=== PATIENT | male | born 1990 | race Caucasian/White ===

== ENCOUNTER 2017-06-13 23:03 | Emergency (ER) | payer OTHER ==
[2017-06-13 23:59] VITALS: BMI 30.8
[2017-06-14] MEDS ORDERED: ACETAMINOPHEN 1000 MG/100 ML VIAL (NON FORMULARY) IVPB ONE (04:53)
[2017-06-14] MEDS ORDERED: FAMOTIDINE 20 MG/50 ML IVPB 20 MG/50 ML MG IVPB ONE ×2 (04:53→05:54)
[2017-06-14] MEDS ORDERED: METOCLOPRAMIDE HCL INJECTION 10 MG/2 ML VIAL IVPUSH ONE (04:53)
[2017-06-14] MEDS ORDERED: SODIUM CHLORIDE 1,000 ML IV STA (04:53)
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
[2017-06-14] MEDS ORDERED: MAG HYDROX/AL HYDROX/SIMETH -MYLANTA- ORAL SUSPENSION PO ONE (04:55)
[2017-06-14] MEDS ORDERED: MAG HYDROX/AL HYDROX/SIMETH 30 ML UNIT-DOSE CUP ONE (05:01)
[2017-06-14] MEDS ORDERED: ACETAMINOPHEN INJECTION 100 ML IVPB ONE (05:01)
[2017-06-14] MEDS ORDERED: METOCLOPRAMIDE HCL INJECTION 10 MG/2 ML VIAL ONE (05:01)
[2017-06-14 05:21] LABS: BASO % 0.5 % (0-2.0); EOS % 0.6 % (0-4.5); HEMATOCRIT 49.5 % (35.4-49); MCH 30.7 pg (25.7-33.7); MCHC 34.3 g/dl (32.0-35.9); MEAN CELL VOLUME 89.3 fl (80-96); MONO % 1.7 % (3.8-10.2); NEUT % 82.2 % (42.8-82.8); PLATELET COUNT 474 K/MM3 (134-434); RBC 5.54 M/mm3 (4.00-5.60); RDW 13.1 % (11.9-15.9); WHITE BLOOD COUNT 16.9 K/mm3 (4.0-10.0)
[2017-06-14 05:23] LABS: URINE APPEARANCE CLEAR; URINE BILIRUBIN NEGATIVE (NEGATIVE); URINE BLOOD NEGATIVE (NEGATIVE); URINE COLOR YELLOW; URINE GLUCOSE (UA) NEGATIVE (NEGATIVE); URINE KETONE 1+ (NEGATIVE); URINE LEUK ESTERASE NEGATIVE (NEGATIVE); URINE NITRITE NEGATIVE (NEGATIVE); URINE UROBILINOGEN NEGATIVE mg/dL (0.2-1.0)
[2017-06-14 05:24] LABS: URINE PROTEIN 2+ (NEGATIVE)
[2017-06-14 05:38] LABS: URINE MUCUS FEW
[2017-06-14 05:47] LABS: ALBUMIN 3.7 g/dl (3.4-5.0); ANION GAP 5 (8-16); BILIRUBIN,TOTAL 0.3 mg/dL (0.2-1.0); BLOOD UREA NITROGEN 15 mg/dL (7-18); CALCIUM 9.3 mg/dL (8.5-10.1); CHLORIDE 103 mmol/L (98-107); CO2 29 mmol/L (21-32); CREATININE 0.9 mg/dL (0.7-1.3); GLUCOSE,RANDOM 123 mg/dL (74-106); POTASSIUM 4.7 mmol/L (3.5-5.1); SGOT/AST 15 U/L (15-37); SGPT/ALT 33 U/L (12-78); SODIUM 137 mmol/L (136-145)
[2017-06-14 05:48] LABS: ALK PHOS 66 U/L (45-117); LIPASE 284 U/L (73-393)
[2017-06-14] MEDS ORDERED: ONDANSETRON 4 MG/2 ML VIAL IVPUSH ONE (06:46)
[2017-06-14 06:48] VITALS: BP 146/85; PULSE 87; TEMP 98.1
--- NOTE | 2017-06-14 08:28 | PDOC ---
*Physical Exam - Vital Signs Last Vital Signs Temp Pulse Resp BP Pulse Ox 98.1 F 87 14 146/85 100 06/14/17 06:47 06/14/17 06:47 06/14/17 06:47 06/14/17 06:47 06/13/17 23:25 <Cyndi Hebert - Last Filed: 06/14/17 09:21> - Vital Signs Last Vital Signs Temp Pulse Resp BP Pulse Ox 98.1 F 87 14 146/85 100 06/14/17 06:47 06/14/17 06:47 06/14/17 06:47 06/14/17 06:47 06/13/17 23:25 <Marco Valadez - Last Filed: 06/14/17 10:29> ED Treatment Course - LABORATORY CBC & Chemistry Diagram: 06/14/17 05:10 06/14/17 04:57 - ADDITIONAL ORDERS Additional order review: Laboratory Results 06/14/17 06/14/17 05:10 04:57 Sodium 137 Potassium 4.7 Chloride 103 Carbon Dioxide 29 Anion Gap 5 L BUN 15 Creatinine 0.9 Creat Clearance w eGFR > 60 Random Glucose 123 H D Calcium 9.3 Total Bilirubin 0.3 D AST 15 ALT 33 Alkaline Phosphatase 66 Total Protein 8.0 Albumin 3.7 Lipase 284 Urine Color Yellow Urine Appearance Clear Urine pH 8.0 Ur Specific [place] 1.030 Urine Protein 2+ H Urine Glucose (UA) Negative Urine Ketones 1+ H Urine Blood Negative Urine Nitrite Negative Urine Bilirubin Negative Urine Urobilinogen Negative Ur Leukocyte Esterase Negative Urine WBC (Auto) <1 Urine RBC (Auto) 3 Urine Mucus Few 06/14/17 05:10 RBC 5.54 MCV 89.3 MCHC 34.3 RDW 13.1 MPV 8.0 D Neutrophils % 82.2 D Lymphocytes % 15.0 D Monocytes % 1.7 L Eosinophils % 0.6 Basophils % 0.5 - Medications Given in the ED: ED Medications Discontinued Medications Generic Name Dose Route Start Last Admin Trade Name Freq PRN Reason Stop Dose Admin Acetaminophen 1,000 mg 06/14/17 04:53 06/14/17 05:18 Ofirmev Injection - IVPB 06/14/17 04:54 1,000 mg ONCE ONE Administration Al Hydroxide/Mg Hydroxide 30 ml 06/14/17 04:55 06/14/17 05:17 Mylanta Suspension - PO 06/14/17 04:56 30 ml ONCE ONE Administration Famotidine/Sodium Chloride 20 mg in 50 mls @ 100 mls/hr 06/14/17 04:53 06:01 Pepcid 20 Mg Premixed Ivpb - IVPB 06/14/17 05:22 100 mls/hr ONCE ONE Administration Sodium Chloride 1,000 mls @ 1,000 mls/hr 06/14/17 04:53 06/14/17 05:17 Normal Saline - IV 06/14/17 05:52 1,000 mls/hr ASDIR STA Administration Metoclopramide HCl 10 mg 06/14/17 04:53 06/14/17 05:34 Reglan Injection - IVPUSH 06/14/17 04:54 10 mg ONCE ONE Administration <Cyndi Hebert - Last Filed: 06/14/17 09:21> - LABORATORY CBC & Chemistry Diagram: 06/14/17 05:10 06/14/17 04:57 - ADDITIONAL ORDERS Additional order review: Laboratory Results 06/14/17 06/14/17 05:10 04:57 Sodium 137 Potassium 4.7 Chloride 103 Carbon Dioxide 29 Anion Gap 5 L BUN 15 Creatinine 0.9 Creat Clearance w eGFR > 60 Random Glucose 123 H D Calcium 9.3 Total Bilirubin 0.3 D AST 15 ALT 33 Alkaline Phosphatase 66 Total Protein 8.0 Albumin 3.7 Lipase 284 Urine Color Yellow Urine Appearance Clear Urine pH 8.0 Ur Specific [place] 1.030 Urine Protein 2+ H Urine Glucose (UA) Negative Urine Ketones 1+ H Urine Blood Negative Urine Nitrite Negative Urine Bilirubin Negative Urine Urobilinogen Negative Ur Leukocyte Esterase Negative Urine WBC (Auto) <1 Urine RBC (Auto) 3 Urine Mucus Few 06/14/17 05:10 RBC 5.54 MCV 89.3 MCHC 34.3 RDW 13.1 MPV 8.0 D Neutrophils % 82.2 D Lymphocytes % 15.0 D Monocytes % 1.7 L Eosinophils % 0.6 Basophils % 0.5 - Medications Given in the ED: ED Medications Discontinued Medications Generic Name Dose Route Start Last Admin Trade Name Freq PRN Reason Stop Dose Admin Acetaminophen 1,000 mg 06/14/17 04:53 06/14/17 05:18 Ofirmev Injection - IVPB 06/14/17 04:54 1,000 mg ONCE ONE Administration Al Hydroxide/Mg Hydroxide 30 ml 06/14/17 04:55 06/14/17 05:17 Mylanta Suspension - PO 06/14/17 04:56 30 ml ONCE ONE Administration Famotidine/Sodium Chloride 20 mg in 50 mls @ 100 mls/hr 06/14/17 04:53 06:01 Pepcid 20 Mg Premixed Ivpb - IVPB 06/14/17 05:22 100 mls/hr ONCE ONE Administration Sodium Chloride 1,000 mls @ 1,000 mls/hr 06/14/17 04:53 06/14/17 05:17 Normal Saline - IV 06/14/17 05:52 1,000 mls/hr ASDIR STA Administration Metoclopramide HCl 10 mg 06/14/17 04:53 06/14/17 05:34 Reglan Injection - IVPUSH 06/14/17 04:54 10 mg ONCE ONE Administration <Marco Valadez - Last Filed: 06/14/17 10:29> Medical Decision Making - Medical Decision Making 06/14/17 08:22 Patient signed out pending official read of CT scan. CT scan not showing any pathology. Patient wants to go home. <Cyndi Hebert - Last Filed: 06/14/17 09:21> - Medical Decision Making 06/14/17 10:28 CTAP with R proximal colitis. Abd benign with R mid but no mcburney's tenderness , feels well. will d/c on abx with GI followup. Understands return criteria. <Marco Valadez - Last Filed: 06/14/17 10:29> *DC/Admit/Observation/Transfer - Discharge Dispostion Admit: No <Cyndi Hebert - Last Filed: 06/14/17 09:21> <Marco Valadez - Last Filed: 06/14/17 10:29> Diagnosis at time of Disposition: Abdominal pain Qualifiers: Abdominal location: left upper quadrant Qualified Code(s): R10.12 - Left upper quadrant pain - Discharge Dispostion Disposition: HOME Condition at time of disposition: Improved - Prescriptions Prescriptions: Ciprofloxacin [Cipro -] 500 mg PO BID #20 tablet Mag Hydrox/Al Hydrox/Simeth [Mylanta Suspension -] 30 ml PO Q6H #1 bottle metroNIDAZOLE [Flagyl -] 500 mg PO TID 10 Days #30 tablet - Referrals Referrals: Ramakrishna Garcias MD [Staff Physician] - Otoniel Morrissey MD [Staff Physician] - - Patient Instructions Printed Discharge Instructions: DI for Abdominal Pain-Adult Additional Instructions: Your CT scan shows some inflammation of your intestines, please follow up with the GI physician (Dr. Garcias). Please take your antibiotics as prescribed. DO NOT DRINK ALCOHOL WHILE TAKING THE ANTIBIOTICS. We also gave you a PCP if you do not have one (Dr. Morrissey) Please return to the ED if you have new or worsening symptoms. Addendum entered and electronically signed by Cyndi Hebert, RESIDENT 06/14/17 09:22: Medical Decision Making - Medical Decision Making Final CT read returned with mild colitis on apbove the appendix. Will discharge with Cipro, flagyl and the same GI follow up. 06/14/17 09:21
--- NOTE | 2017-06-14 11:06 | EKG ---
Test Reason : Blood Pressure : / mmHG Vent. Rate : 051 BPM Atrial Rate : 051 BPM P-R Int : 136 ms QRS Dur : 086 ms QT Int : 472 ms P-R-T Axes : 055 065 059 degrees QTc Int : 435 ms SINUS BRADYCARDIA OTHERWISE NORMAL ECG NO PREVIOUS ECGS AVAILABLE Confirmed by Saul Arredondo ([id number]) on 06/14/2017 11:06:14 AM Referred By: Confirmed By:Saul Arredondo
== END 2017-06-14 10:10 | disposition home or self-care (01) ==
LOC: JER 23:03
PROC: 3E0337Z Introduction of Electrolytic and Water Balance Substance into Peripheral Vein, Percutaneous Approach (ICD-10-PCS; principal; 2017-06-13)
PROC: 3E033GC Introduction of Other Therapeutic Substance into Peripheral Vein, Percutaneous Approach (ICD-10-PCS; 2017-06-13)
PROC: 3E033GC Introduction of Other Therapeutic Substance into Peripheral Vein, Percutaneous Approach (ICD-10-PCS; 2017-06-13)
PROC: 3E033NZ Introduction of Analgesics, Hypnotics, Sedatives into Peripheral Vein, Percutaneous Approach (ICD-10-PCS; 2017-06-13)
DX: K52.9 Noninfective gastroenteritis and colitis, unspecified (principal); R10.12 Left upper quadrant pain
CPT/HCPCS: 36415; 71045-TC-FY; 74177-TC; 80053; 81003; 81015; 83690; 85025; 93005; 93010; 99283-25; J0131; J7030